=== PATIENT | female | born 1990 | race African-American/Black ===

== ENCOUNTER 2019-03-21 18:46 | Emergency (ER) | payer OTHER ==
[~2019-03-21] VITALS: Ht 152.4 cm; Wt 70.8 kg
[2019-03-21 19:31] VITALS: BP 125/73
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
[2019-03-21] MEDS ORDERED: IBUPROFEN 200 MG TABLET. PO ONE (21:30)
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
[2019-03-21] MEDS ORDERED: ORPH100T PO (22:00)
[2019-03-21] MEDS ORDERED: HYDR-3164 PO (22:00)
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
== END 2019-03-21 22:30 | disposition home or self-care (01) ==
LOC: ER 18:46
DX: S16.1XXA Strain of muscle, fascia and tendon at neck level, initial encounter (principal); V43.62XA Car passenger injured in collision with other type car in traffic accident, initial encounter; Y92.488 Other paved roadways as the place of occurrence of the external cause; Y93.89 Activity, other specified; Y99.8 Other external cause status
CPT/HCPCS: 70450; 72125; 72128; 72131; 81025; 99284-25